=== PATIENT | female | born 1950 | race Caucasian/White ===

== ENCOUNTER 2017-02-20 12:27 | Emergency (ER) | payer MEDICAID ==
[~2017-02-20] VITALS: Ht 160 cm; Wt 80.0 kg
[~2017-02-20 12:27] MED LIST: CARB200T6; CLON1TAB; KEPPRA PO
[2017-02-20 14:29] LABS: HEMATOCRIT 38.6 % (36.0-48.0); MEAN CORPUSCULAR HEMOGLOBIN 30.5 pg (28.0-32.0); MEAN CORPUSCULAR VOLUME 90.6 fL (81.0-99.0); PLATELET 192 x1000/uL (130-400); RED BLOOD CELL COUNT 4.26 mill/uL (4.2-5.4)
[2017-02-20 14:41] LABS: CARBON DIOXIDE 27 mEq/L (21-32); CHLORIDE 110 mEq/L (98-107)
[2017-02-20 15:04] LABS: CARBAMAZEPINE 7.9 ug/mL (4-12)
[2017-02-20 16:26] LABS: *AMPHETAMINES SCREEN URINE NEGATIVE (NEGATIVE); *BARBITURATES SCREEN URINE NEGATIVE (NEGATIVE); *BENZODIAZEPINES SCREEN URINE NEGATIVE (NEGATIVE); *COCAINE SCREEN URINE NEGATIVE (NEGATIVE); CANNABINOID URINE SCREEN NEGATIVE (NEGATIVE); METHADONE URINE SCREEN NEGATIVE (NEGATIVE); OPIATES URINE SCREEN NEGATIVE (NEGATIVE); PHENCYCLIDINE URINE SCREEN NEGATIVE (NEGATIVE)
[2017-02-20 17:49] VITALS: BP 124/61
== END 2017-02-20 17:50 | disposition home or self-care (01) ==
LOC: ER 12:50
DX: G40.909 Epilepsy, unspecified, not intractable, without status epilepticus (principal); S80.211A Abrasion, right knee, initial encounter; M25.561 Pain in right knee; M25.532 Pain in left wrist; Y93.01 Activity, walking, marching and hiking; W01.0XXA Fall on same level from slipping, tripping and stumbling without subsequent striking against object, initial encounter; Y92.480 Sidewalk as the place of occurrence of the external cause; M17.11 Unilateral primary osteoarthritis, right knee; M25.461 Effusion, right knee; M85.89 Other specified disorders of bone density and structure, multiple sites
CPT/HCPCS: 36415; 71010; 73110; 73562; 80053; 80156; 80165; 80305; 85027; 93005; 99285; G0482; L1830

== ENCOUNTER 2017-03-28 09:01 | Emergency (ER) | payer MEDICAID ==
[~2017-03-28] VITALS: Ht 170.2 cm; Wt 77.0 kg
[2017-03-28] MEDS ORDERED: ACETAMINOPHEN WITH CODEINE 300/30MG TABLET PO ONE (09:30)
[2017-03-28 10:16] VITALS: BP 118/62
== END 2017-03-28 11:06 | disposition home or self-care (01) ==
LOC: ER 09:48
DX: S52.602A Unspecified fracture of lower end of left ulna, initial encounter for closed fracture (principal); M25.561 Pain in right knee; X58.XXXA Exposure to other specified factors, initial encounter; Y93.9 Activity, unspecified; Y92.9 Unspecified place or not applicable; R03.0 Elevated blood-pressure reading, without diagnosis of hypertension; G40.909 Epilepsy, unspecified, not intractable, without status epilepticus
CPT/HCPCS: 29125; 73110; 73562; 99284